=== PATIENT | female | born 1950 | race Caucasian/White ===

== ENCOUNTER 2018-11-29 02:36 | Inpatient (IN) | payer OTHER, MEDICARE | END 2018-12-02 19:30 | LOC: ER 02:36 → WEST WING 15:26 | PROC: 0SRS0JZ Replacement of Left Hip Joint, Femoral Surface with Synthetic Substitute, Open Approach (ICD-10-PCS; principal; 2018-11-30 08:45) | DX: S72.002A Fracture of unspecified part of neck of left femur, initial encounter for closed fracture (principal); N39.0 Urinary tract infection, site not specified; K21.9 Gastro-esophageal reflux disease without esophagitis; M81.0 Age-related osteoporosis without current pathological fracture; M19.90 Unspecified osteoarthritis, unspecified site ==

== ENCOUNTER 2022-10-11 16:50 | Inpatient (IN) | payer OTHER ==
[~2022-10-11] VITALS: Ht 152.4 cm; Wt 60.0 kg
[~2022-10-11 16:50] MED LIST: ACET-3 PO; ALEN70TA74 PO; CALC150C PO; GLUC-163 PO; LORA10CA7 PO; MULT-1018 PO; PROBTAB12 OR
[2022-10-11] MEDS ORDERED: SODIUM CHLORIDE 0.9% 1,000 ML IV ONE (17:30)
[2022-10-11 18:15] LABS: Albumin 3.4 g/dL (3.4-5.0); Calcium 8.1 mg/dL (8.5-10.1); Potassium 3.1 mmol/L (3.5-5.1)
[2022-10-11 18:19] LABS: BUN/Creatinine Ratio 19.6; Bilirubin, Total 0.6 mg/dL (0.2-1.0); Hemoglobin 14.3 g/dL (12.2-16.2); Mean Corpuscular Volume 93.1 fL (80.0-100.0); Red Cell Distribution Width 12.1 % (11.8-14.3); Total Protein 7.5 g/dL (6.4-8.2)
[2022-10-11 18:21] LABS: Hematocrit 39.8 % (36.0-46.0); Mean Corpuscular Hemoglobin 33.5 pg (28.0-32.0); Red Blood Cells 4.28 10^6/uL (4.0-5.20)
[2022-10-11 18:23] LABS: INR 1.03 (0.9-1.15); Partial Thromboplastin Time 37.8 sec (24.6-33.4)
[2022-10-11 18:24] LABS: White Blood Cell 1.7 10^3/uL (4.4-10.8)
[2022-10-11 18:25] LABS: Basophils % (manual) 0 (0.0-2.0); Blast Cells 0; Eosinophils % (manual) 0 (0-7); Metamyelocytes % 0; Myelocytes % 0; Promyelocytes % 0; Reactive Lymphocytes 0
[2022-10-11 18:42] LABS: Band Neutrophils % (manual) 2; Lymphocytes % (manual) 50 (10.0-50.0); Monocytes % (manual) 36 (0-12)
[2022-10-11] MEDS ORDERED: MAALOX PLUS or MAALOX 30 ML PO PRN (20:45)
[2022-10-11] MEDS ORDERED: HYDROcodone-ACET 5/325MG TAB PO PRN (20:45)
[2022-10-11] MEDS ORDERED: ONDANSETRON HCL 4 MG/2 ML VIAL IV PRN (20:45)
[2022-10-11] MEDS ORDERED: ACETAMINOPHEN 325 MG TAB PO PRN (20:45)
[2022-10-11] MEDS ORDERED: LORazepam 0.5 MG TAB PO PRN (20:45)
[2022-10-11] MEDS ORDERED: DOCUSATE SOD 100 MG CAP PO PRN (20:45)
[2022-10-11] MEDS ORDERED: cefTRIAXone 1GM/50ML D5W 50 ML IV SCH (21:15)
[2022-10-11] MEDS: SODIUM CHLORIDE 0.9% 1,000 ML IV SCH (22:28)
[2022-10-12] LABS: Urine Bacteria NONE SEEN /hpf (None Seen); Urine Blood 2+ /uL (Negative); Urine Specific Gravity 1.024 (1.001-1.035)
[2022-10-12 00:11] LABS: Urine Mucus FEW (None Seen)
[2022-10-12 06:58] LABS: BUN/Creatinine Ratio 17.5; Calcium 7.3 mg/dL (8.5-10.1)
[2022-10-12 07:07] LABS: Potassium 2.9 mmol/L (3.5-5.1)
[2022-10-12 07:08] LABS: Hemoglobin 12.6 g/dL (12.2-16.2); Mean Corpuscular Hemoglobin 32.2 pg (28.0-32.0); Mean Corpuscular Hgb Conc. 34.1 g/dL (32.0-36.0); Mean Corpuscular Volume 94.5 fL (80.0-100.0); Red Blood Cells 3.92 10^6/uL (4.0-5.20); Red Cell Distribution Width 12.3 % (11.8-14.3); White Blood Cell 2.9 10^3/uL (4.4-10.8)
[2022-10-12 07:33] LABS: Basophils % (manual) 0 (0.0-2.0); Blast Cells 0; Eosinophils % (manual) 0 (0-7); Metamyelocytes % 0; Myelocytes % 0; Promyelocytes % 0; Reactive Lymphocytes 0
[2022-10-12] MEDS: POTASSIUM CHL 20MEQ/100ML 100 ML IV SCH ×2 (10:19→14:13)
[2022-10-12 12:10] LABS: Magnesium 1.9 mg/dL (1.6-2.6)
[2022-10-12 13:39] LABS: Band Neutrophils % (manual) 16; Lymphocytes % (manual) 44 (10.0-50.0); Monocytes % (manual) 25 (0-12)
[2022-10-12] MEDS: SODIUM CHLORIDE 0.9% 1,000 ML IV SCH ×2 (14:14→15:28)
[2022-10-12] MEDS ORDERED: levoFLOXacin 500MG 100 ML IV ONE (15:15)
[2022-10-12 23:03] VITALS: BP 132/62
[2022-10-12 23:57] LABS: Cholesterol 167 mg/dL (< 200)
[2022-10-13] LABS: HDL Cholesterol 28 mg/dL (40-59); LDL Cholesterol 126 mg/dL (< 100); Triglycerides 117 mg/dL (< 150)
[2022-10-13 00:06] LABS: Free T4 (Free Thyroxine) 1.11 ng/dL (0.89-1.76)
[2022-10-13 00:07] LABS: Folate (Folic Acid) > 24.00 ng/mL (5.38-24)
[2022-10-13] MEDS: SODIUM CHLORIDE 0.9% 1,000 ML IV SCH ×3 (01:15→21:05)
[2022-10-13 05:00] VITALS: BP 138/65
[2022-10-13 07:08] LABS: Hematocrit 34.4 % (36.0-46.0); Hemoglobin 12.1 g/dL (12.2-16.2); Mean Corpuscular Hemoglobin 32.4 pg (28.0-32.0); Mean Corpuscular Hgb Conc. 35.2 g/dL (32.0-36.0); Red Blood Cells 3.74 10^6/uL (4.0-5.20); Red Cell Distribution Width 12.2 % (11.8-14.3); White Blood Cell 2.7 10^3/uL (4.4-10.8)
[2022-10-13 07:12] LABS: Basophils % (manual) 0 (0.0-2.0); Blast Cells 0; Eosinophils % (manual) 0 (0-7); Metamyelocytes % 0; Myelocytes % 0; Promyelocytes % 0; Reactive Lymphocytes 0
[2022-10-13 07:24] LABS: Potassium 2.9 mmol/L (3.5-5.1)
[2022-10-13] MEDS ORDERED: POTASSIUM CHL 20 Meq TABLET PO ONE (08:15)
[2022-10-13 09:00] VITALS: BP 162/63
[2022-10-13] MEDS ORDERED: POTASSIUM CHLORIDE 40 MEQ in SOD CHL 0.45% 1,000 ML IV ONE (09:00)
[2022-10-13] MEDS ORDERED: levoFLOXacin 250MG 50 ML IV SCH (10:00)
[2022-10-13 12:55] VITALS: BP 124/55
[2022-10-13] MEDS: MAGNESIUM SULFATE 1GM/100ML 100 ML IV SCH ×2 (13:46→15:53)
[2022-10-13 14:14] LABS: Band Neutrophils % (manual) 16; Lymphocytes % (manual) 26 (10.0-50.0); Monocytes % (manual) 30 (0-12)
[2022-10-13] MEDS ORDERED: ASPirin 81 mg TAB PO SCH (14:15)
[2022-10-13 16:48] LABS: BUN/Creatinine Ratio 17.5; Calcium 7.8 mg/dL (8.5-10.1); Potassium 3.2 mmol/L (3.5-5.1)
[2022-10-13 16:52] VITALS: BP 101/57
[2022-10-13] MEDS: CLINDAMYCIN HCL 150 MG CAP PO SCH ×2 (19:19→21:06)
[2022-10-13 22:00] VITALS: BP 120/60
[2022-10-14 05:29] VITALS: BP 109/64
[2022-10-14] MEDS: CLINDAMYCIN HCL 150 MG CAP PO SCH ×2 (06:33→14:15)
[2022-10-14 06:42] LABS: Basophils # (auto) 0.1 10 ^3/uL (0-0.2); Basophils % (auto) 0.5 % (0.0-2.0); Eosinophils # (auto) 0 10 ^3/uL (0-0.8); Hemoglobin 11.7 g/dL (12.2-16.2); Lymphocytes # (auto) 0.7 10 ^3/uL (0.4-5.4); Lymphocytes % (auto) 6.1 % (10.0-50.0); Mean Corpuscular Hemoglobin 32.6 pg (28.0-32.0); Mean Corpuscular Hgb Conc. 35.5 g/dL (32.0-36.0); Mean Corpuscular Volume 91.8 fL (80.0-100.0); Monocytes # (auto) 2.1 10 ^3/uL (0-1.3); Monocytes % (auto) 17.6 % (0.0-12.0); Neutrophils # (auto) 9.2 10 ^3/uL (1.6-8.6); Neutrophils % (auto) 75.8 % (37.0-80.0); Red Cell Distribution Width 12.2 % (11.8-14.3); White Blood Cell 12.2 10^3/uL (4.4-10.8)
[2022-10-14 06:58] LABS: Calcium 7.4 mg/dL (8.5-10.1)
[2022-10-14 08:15] VITALS: BP 132/58
[2022-10-14] MEDS: SODIUM CHLORIDE 0.9% 1,000 ML IV SCH (09:04)
[2022-10-14] MEDS ORDERED: levoFLOXacin 500 MG TAB PO SCH (10:00)
[2022-10-14] MEDS ORDERED: levoFLOXacin 250 MG TAB PO SCH (10:00)
[2022-10-14 12:00] VITALS: BP 127/68
[2022-10-14 16:00] VITALS: BP 109/60
[2022-10-14] MEDS ORDERED: SULFAMETHOX W/TRIMETH(800/160MG) DS TAB PO SCH (17:30)
== END 2022-10-14 19:08 | DRG 557 ==
LOC: EDBD 16:50 → ER 16:50 → OVERFLOW 20:57 → WEST WING 10-12 21:36
PROVIDERS: ADMIT Hospitalist; ATTEND Internal Medicine
DX: M62.82 Rhabdomyolysis (principal); G93.41 Metabolic encephalopathy; N39.0 Urinary tract infection, site not specified; E87.1 Hypo-osmolality and hyponatremia; E87.20 Acidosis, unspecified; R55 Syncope and collapse; D72.819 Decreased white blood cell count, unspecified; K21.9 Gastro-esophageal reflux disease without esophagitis; M19.90 Unspecified osteoarthritis, unspecified site; M81.0 Age-related osteoporosis without current pathological fracture; R62.7 Adult failure to thrive; E87.6 Hypokalemia; F17.200 Nicotine dependence, unspecified, uncomplicated; Z88.8 Allergy status to other drugs, medicaments and biological substances; Z88.0 Allergy status to penicillin
CPT/HCPCS: 36415; 70450; 70551; 71045; 80048; 80053; 80061; 81001; 82550; 82607; 82746; 83605; 83735; 83880; 84132; 84439; 84443; 84484; 85007; 85025; 85027; 85610; 85730; 87040; 87086; 87088; 87186; 87426; 93005; 93306; 95819; 97110; 97163; G0378; J1956; J3480